=== PATIENT | male | born 1945 | race Caucasian/White ===

== ENCOUNTER 2018-06-03 00:56 | Inpatient (IN) | payer MEDICARE, OTHER ==
[2018-06-03] MEDS ORDERED: Lidocaine Viscous Sol 2% 15 ml UD Cup ONE (01:28)
[2018-06-03] MEDS ORDERED: Mag-Al 1200 mg/1200 mg/30 ML UDCUP ONE (01:28)
[2018-06-03 01:35] LABS: #Eosinphils 0.1 thou/uL (0.0-0.7); #Lymphocytes 0.8 thou/uL (1.20-3.40); #Neutrophils 10.4 thou/uL (1.40-6.50); %Basophils 0.2 % (0.0-1.0); %Lymphocytes 6.3 % (21.0-51.0); %Monocytes 8.2 % (0.0-10.0); %Neutrophils 84.4 % (42.0-75.0); Hemoglobin 15.8 g/dL (14.0-18.0); Mean Corpuscular HGB CONC 34.1 g/dL (32.0-36.0); Mean Corpuscular Hemoglobin 29.7 pg (27.0-31.0); Mean Corpuscular Volume 87.3 fL (78.0-98.0); Mean Platelet Volume 5.8 fL (7.4-10.4); Platelet Count 187 thou/uL (130-400); RBC Distribution Width 12.4 % (11.5-14.5); White Blood Cell (WBC) Count 12.3 thou/uL (4.8-10.8)
[2018-06-03] MEDS ORDERED: Ondansetron ODT 4 MG TAB ONE (01:47)
[2018-06-03] MEDS ORDERED: Morphine 4 MG/ML VIAL ONE (01:50)
[2018-06-03] MEDS ORDERED: Pantoprazole 40 MG VIAL ONE (01:50)
[2018-06-03] MEDS ORDERED: Ondansetron HCl/PF 4 MG/2 ML Vial ONE ×2 (01:50→10:02)
[2018-06-03 01:54] LABS: ALT (SGPT) 29 U/L (8-55); AST (SGOT) 30 U/L (5-34); Albumin 4.6 g/dL (3.4-4.8); Alkaline Phosphatase 106 U/L (40-150); Anion Gap 17 mmol/L (10-20); BUN (Urea Nitrogen) 24 mg/dL (8.4-25.7); Bilirubin, Total 1.5 mg/dL (0.2-1.2); CK (CPK) 113 U/L (30-200); Calc. Creatinine Clearance 0 mL/min (70-130); Calcium 9.8 mg/dL (7.8-10.44); Carbon Dioxide 24 mmol/L (23-31); Chloride 104 mmol/L (98-107); Estimated GFR-MDRD 49; Globulin 2.9 g/dL (2.4-3.5); Glucose 173 mg/dL (83-110); Lipase 13 U/L (8-78); Potassium 4.4 mmol/L (3.5-5.1); Protein, Total 7.5 g/dL (5.8-8.1); Sodium 141 mmol/L (136-145)
[2018-06-03 01:59] LABS: Troponin I 0.022 ng/mL (< 0.028)
[2018-06-03 03:36] LABS: Bilirubin Negative (Negative); Blood, Urine Negative (Negative); Clarity CLEAR (Clear); Glucose, Urine (Dipstick) Negative (Negative); Leukocyte Negative (Negative); Nitrite Negative (Negative); Protein, Urine (Dipstick) Negative (Neg-Trace); Specific Gravity, Urine 1.044 (1.002-1.036)
[2018-06-03] MEDS ORDERED: Fentanyl 100 MCG/2 ML VIAL ONE ×4 (03:50→11:04)
[2018-06-03] MEDS ORDERED: MEROPENEM 1 GM/50 ML 1 GM in Premix Bag 1 BAG IVPB SCH ×3 (05:00→17:00)
[2018-06-03] MEDS ORDERED: Ondansetron HCl/PF 4 MG/2 ML Vial IVP PRN ×3 (05:54→17:12)
[2018-06-03] MEDS ORDERED: Acetaminophen 325 MG TAB PO PRN ×3 (05:54→17:10)
[2018-06-03] MEDS ORDERED: Ondansetron ODT 4 MG TAB SL PRN (05:54)
[2018-06-03] MEDS ORDERED: Fentanyl 100 MCG/2 ML VIAL SLOW IVP PRN ×2 (05:54→17:06)
[2018-06-03 06:00] VITALS: BMI 32.1
[2018-06-03] MEDS: Sodium Chloride 0.9% 1,000 ML IV SCH ×2 (06:25→17:03)
[2018-06-03] MEDS ORDERED: Iothalamate Meglumine 60% 50 ML VIAL FS ONE ×2 (06:54→13:10)
[2018-06-03] MEDS ORDERED: Bupivacaine/Epinephrine 0.25% 30 ML VIAL ONE ×2 (06:54→13:10)
--- NOTE | 2018-06-03 07:50 | RAD ---
PORTABLE UPRIGHT FRONTAL CHEST RADIOGRAPH: DATE: 06/03/18. HISTORY: Epigastric pain. FINDINGS: Heart and mediastinal contours are grossly unremarkable with no pneumothorax, pleural fluid, focal co nsolidation, or alveolar edema. Mild increased linear interstitial density. There is mild atheroscl erotic calcification in the aortic arch. IMPRESSION: No focal consolidation or alveolar edema. POS: [facility]
--- NOTE | 2018-06-03 08:17 | ULT ---
PRELIMINARY REPORT/[facility]/EMERGENCY AFTER HOURS PROCEDURE: EXAM: US Abdomen Limited, Right Upper Quadrant EXAM DATE/TIME: 06/03/2018 3:38 AM CLINICAL HISTORY: 72 years old, male; Pain and signs and symptoms; Nausea and vomiting; Abdominal pain; Epigastric TECHNIQUE: Real-time ultrasound of the abdomen with image documentation. Examination is focused on the right upper quadrant. COMPARISON: CT Abdomen Pelvis W Con 06/03/2018 2:26 AM FINDINGS: Liver: Liver is normal in length with normal echogenicity. Portal venous: Normal appearing main portal vein flow. Gallbladder: Gallbladder contains sludge material and mild pericholecystic fluid. No definite stones. Common bile duct: Common bile duct is normal in width at 4 mm. Pancreas: Pancreas not visualized well. Right kidney: Right kidney partially obscured, 4.8 x 4.6 x 11.9 cm appears normal. Intraperitoneal space: No evidence of free fluid. Other findings: Limited study due to increased bowel gas. IMPRESSION: 1. Limited study due to increased bowel gas. 2. Gallbladder contains sludge material and mild pericholecystic fluid - findings suspicious for chol ecystitis. Thank you for allowing us to participate in the care of your patient. Dictated and Authenticated by: Shaila Kern MD 06/03/2018 4:08 AM Central Time ([place] & [place]) FINAL REPORT GALLBLADDER ULTRASOUND: Date: 06/03/18 FINDINGS/IMPRESSION: Report is in agreement with the preliminary interpretation provided above. Increased echogenicity of the gallbladder lumen, indicating gallbladder sludge/stones. There is a bor derline size gallbladder wall which approximately 3 mm in size. Subtle decreased echogenicity about t he gallbladder wall may relate to a small volume of pericholecystic fluid. Recommend clinical correla tion to exclude evidence of cholecystitis. POS: [facility]
--- NOTE | 2018-06-03 08:33 | CT ---
PRELIMINARY REPORT/[facility]/EMERGENCY AFTER HOURS PROCEDURE: EXAM: CT Abdomen and Pelvis With Intravenous Contrast EXAM DATE/TIME: 06/03/2018 2:26 AM CLINICAL HISTORY: 72 years old, male; Pain; Abdominal pain; Epigastric; Patient HX: Epigastric pain. TECHNIQUE: Axial computed tomography images of the abdomen and pelvis with intravenous contrast. Coronal reforma tted images were created and reviewed. COMPARISON: No relevant prior studies available. FINDINGS: Lower thorax: Rounded 3 cm hiatal hernia. Mild bilateral lower lobe dependent air space opacityatelec tasis. ABDOMEN: Liver: Normal. No mass. Gallbladder and bile ducts: Mild suspected inhomogeneity of the fat surrounding the gallbladder; smal l 3 mm stone within the gallbladder lumen. Pancreas: Normal. No ductal dilation. Spleen: Normal. No splenomegaly. Adrenals: Normal. No mass. Kidneys and ureters: Rounded 1-2 mm densities bilateral kidneys. Stomach and bowel: Moderate colonic diverticulosis particularly involving the descending-sigmoid colo n. No radiographic signs of inflammation. Appendix: Visualized portions of appendix appear normal. PELVIS: Bladder: Unremarkable as visualized. Reproductive: Prostate appears within normal limits. ABDOMEN and PELVIS: Intraperitoneal space: Normal. No free air. No significant fluid collection. Bones/joints: Chronic degenerative changes of the lumbar spine. Soft tissues: Unremarkable. Vasculature: Chronic atherosclerotic calcification of the vasculature. Lymph nodes: Normal. No enlarged lymph nodes. IMPRESSION: 1. Gallstone with possible inflammation-cholecystitis versus artifact. No evidence of intrahepatic or extrahepatic biliary ductal dilatation. Please correlate with patients clinical exam. 2. Rounded 3 cm hiatal hernia. 3. Moderate colonic diverticulosis particularly involving the descending-sigmoid colon. No radiograph ic signs of inflammation. 4. Suspected bilateral renal nonobstructive stones. 5. Mild bilateral lower lobe dependent air space opacity-atelectasis. Thank you for allowing us to participate in the care of your patient. Dictated and Authenticated by: Shaila Kern MD 06/03/2018 3:50 AM Central Time ([place] & [place]) FINAL REPORT ABDOMEN AND PELVIC CT WITH CONTRAST: FINDINGS/IMPRESSION: Final report is in agreement with the above-provided preliminary interpretation. Mild inflammation about the gallbladder with subtle increased density of the gallbladder lumen. Coco elate for clinical evidence of cholecystitis. Not mentioned in preliminary report, there is mild enlargement of the prostate gland with an approxim ate 5.5 cm transverse diameter. Recommend appropriate clinical followup in this regard. POS: [facility]
[2018-06-03] MEDS ORDERED: Lidocaine 1% PF 5 ML VIAL ONE (10:02)
[2018-06-03] MEDS ORDERED: Labetalol HCl 100 MG/20 ML VIAL ONE (10:02)
[2018-06-03] MEDS ORDERED: PROPOFOL 200 MG/20 ML VIAL ONE (10:02)
[2018-06-03] MEDS ORDERED: Ketorolac Tromethamine 30 MG/ML VIAL ONE (10:02)
[2018-06-03] MEDS ORDERED: Glycopyrrolate 0.2 MG/ML 5 ML SYRINGE ONE (10:02)
[2018-06-03] MEDS ORDERED: Famotidine/PF 20 mg/2ml Vial ONE (10:56)
[2018-06-03] MEDS ORDERED: Midazolam HCl 2 mg/2 ml Vial ONE (11:04)
[2018-06-03] MEDS ORDERED: ISOVUE-370 76%-LOCM 1 ML ONE (11:09)
[2018-06-03] MEDS ORDERED: Fentanyl 250 MCG/5 ML VIAL ONE (13:09)
[2018-06-03] MEDS ORDERED: Promethazine HCl 25 MG/ML VIAL SLOW IVP PRN (13:49)
[2018-06-03] MEDS ORDERED: Promethazine HCl 25 MG/ML VIAL IM PRN (13:49)
--- NOTE | 2018-06-03 15:24 | RAD ---
OPERATIVE CHOLANGIOGRAM: A single film is presented for interpretation. This shows filling of a nondilated common duct with e mptying into the duodenum. IMPRESSION: Unremarkable operative cholangiogram. POS: [facility]
[2018-06-03] MEDS ORDERED: Meropenem 1 GM in Sodium Chloride 0.9% 100 ML IVPB SCH (17:00)
[2018-06-03] MEDS ORDERED: HYDROcodone/Acetaminophen 7.5/325 mg Tablet PO PRN (17:08)
[2018-06-03] MEDS ORDERED: Ibuprofen 200 MG TAB PO PRN (17:09)
[2018-06-03] MEDS: Pantoprazole 40 MG VIAL IVP SCH (21:05)
[2018-06-03] MEDS: MEROPENEM 1 GM/50 ML 1 GM in Premix Bag 1 BAG IVPB SCH (21:06)
[2018-06-04] MEDS: HYDROcodone/Acetaminophen 7.5/325 mg Tablet PO PRN ×5 (02:02→20:41)
[2018-06-04] MEDS: MEROPENEM 1 GM/50 ML 1 GM in Premix Bag 1 BAG IVPB SCH ×3 (05:17→21:05)
[2018-06-04] MEDS ORDERED: Prevnar 13-Val Conj/PF 0.5 ML SYRINGE IM ONE (09:00)
[2018-06-04 10:24] LABS: ALT (SGPT) 97 U/L (8-55); AST (SGOT) 82 U/L (5-34); Albumin 3.8 g/dL (3.4-4.8); Alkaline Phosphatase 114 U/L (40-150); Anion Gap 13 mmol/L (10-20); BUN (Urea Nitrogen) 21 mg/dL (8.4-25.7); Bilirubin, Total 1.7 mg/dL (0.2-1.2); Calc. Creatinine Clearance 77 mL/min (70-130); Calcium 8.7 mg/dL (7.8-10.44); Carbon Dioxide 26 mmol/L (23-31); Chloride 102 mmol/L (98-107); Estimated GFR-MDRD 54; Globulin 2.8 g/dL (2.4-3.5); Glucose 131 mg/dL (83-110); Potassium 4.3 mmol/L (3.5-5.1); Protein, Total 6.6 g/dL (5.8-8.1); Sodium 137 mmol/L (136-145)
[2018-06-04 11:07] LABS: Band 3 % (5-11); Eosinophils 2 % (0-10); Hemoglobin 14.9 g/dL (14.0-18.0); Lymphocytes 7 % (21-51); MDiff Complete? YES; Mean Corpuscular HGB CONC 33.5 g/dL (32.0-36.0); Mean Corpuscular Hemoglobin 29.6 pg (27.0-31.0); Mean Corpuscular Volume 88.2 fL (78.0-98.0); Mean Platelet Volume 5.6 fL (7.4-10.4); Monocytes 5 % (0-10); Neutrophil 83 % (42-75); PLT Morphology Comment Appears Adequate; Platelet Count 188 thou/uL (130-400); RBC Distribution Width 12.6 % (11.5-14.5); Red Blood Cell (RBC) Count 5.03 mill/uL (4.70-6.10); White Blood Cell (WBC) Count 16.9 thou/uL (4.8-10.8)
[2018-06-04] MEDS ORDERED: Sodium Chloride 0.9% 500 ML IVPB SCH (19:45)
[2018-06-04] MEDS: Pantoprazole 40 MG VIAL IVP SCH (20:41)
[2018-06-04] MEDS: Ibuprofen 600 MG TAB PO PRN (20:41)
[2018-06-05] MEDS: Sodium Chloride 0.9% 1,000 ML IV SCH ×2 (00:45→14:00)
[2018-06-05] MEDS: MEROPENEM 1 GM/50 ML 1 GM in Premix Bag 1 BAG IVPB SCH ×2 (06:20→14:02)
[2018-06-05] MEDS: HYDROcodone/Acetaminophen 7.5/325 mg Tablet PO PRN (06:21)
[2018-06-05] MEDS: Ibuprofen 600 MG TAB PO PRN (06:21)
[2018-06-05 10:28] LABS: #Basophils 0.1 thou/uL (0.0-0.2); #Eosinphils 0.9 thou/uL (0.0-0.7); #Lymphocytes 1.4 thou/uL (1.20-3.40); #Monocytes 1.9 thou/uL (0.11-0.59); #Neutrophils 12.7 thou/uL (1.40-6.50); %Basophils 0.4 % (0.0-1.0); %Eosinophils 5.3 % (0.0-10.0); %Lymphocytes 8.3 % (21.0-51.0); %Monocytes 11.2 % (0.0-10.0); %Neutrophils 74.9 % (42.0-75.0); Hemoglobin 14.1 g/dL (14.0-18.0); Mean Corpuscular HGB CONC 32.9 g/dL (32.0-36.0); Mean Corpuscular Hemoglobin 29.2 pg (27.0-31.0); Mean Corpuscular Volume 88.8 fL (78.0-98.0); Mean Platelet Volume 5.8 fL (7.4-10.4); Platelet Count 195 thou/uL (130-400); RBC Distribution Width 12.4 % (11.5-14.5); Red Blood Cell (RBC) Count 4.81 mill/uL (4.70-6.10)
[2018-06-05 10:48] LABS: ALT (SGPT) 96 U/L (8-55); AST (SGOT) 70 U/L (5-34); Albumin 3.7 g/dL (3.4-4.8); Alkaline Phosphatase 176 U/L (40-150); Anion Gap 13 mmol/L (10-20); BUN (Urea Nitrogen) 22 mg/dL (8.4-25.7); Bilirubin, Total 1.7 mg/dL (0.2-1.2); Calc. Creatinine Clearance 79 mL/min (70-130); Calcium 9.1 mg/dL (7.8-10.44); Carbon Dioxide 28 mmol/L (23-31); Chloride 102 mmol/L (98-107); Estimated GFR-MDRD 56; Globulin 2.8 g/dL (2.4-3.5); Glucose 119 mg/dL (83-110); Protein, Total 6.5 g/dL (5.8-8.1); Sodium 139 mmol/L (136-145)
[2018-06-05 11:51] VITALS: BP 127/81; TEMP 97.8
--- NOTE | 2018-06-05 18:24 | EKG ---
Test Reason : EPIGASTRIC PAIN Blood Pressure : / mmHG Vent. Rate : 068 BPM Atrial Rate : 068 BPM P-R Int : 178 ms QRS Dur : 090 ms QT Int : 378 ms P-R-T Axes : 063 -07 -11 degrees QTc Int : 401 ms Normal sinus rhythm with sinus arrhythmia Inferior infarct , age undetermined Cannot rule out Anterior infarct , age undetermined Abnormal ECG Confirmed by LONG LOPEZ, QUAN Callaway ([id number]), features editor ELISA HAYES ([id number]) on 06/05/2018 6:24:24 PM Referred By: Confirmed By:QUAN ALVES MD
--- NOTE | 2018-06-07 20:48 | EKG ---
Test Reason : STAT Blood Pressure : / mmHG Vent. Rate : 102 BPM Atrial Rate : 102 BPM P-R Int : 168 ms QRS Dur : 088 ms QT Int : 332 ms P-R-T Axes : 063 011 038 degrees QTc Int : 432 ms Sinus tachycardia with Premature atrial complexes Inferior infarct , age undetermined Abnormal ECG No previous ECGs available Confirmed by RENAN JO (2) on 06/07/2018 8:48:02 PM Referred By: KATIE Confirmed By:RENAN JO
--- NOTE | 2018-06-09 19:32 | PDOC.OP ---
Operative Note - Operative Note Operative Note: PROCEDURE: Laparoscopic cholecystectomy with intraoperative cholangiogram SURGEON: Qasim Olivares M.D. DATE OF PROCEDURE: 06/03/2018 PREOPERATIVE DIAGNOSIS: Cholelithiasis and cholecystitis, possible choledocholithiasis, small umbilical hernia POSTOPERATIVE DIAGNOSIS: Cholelithiasis and cholecystitis, small umbilical hernia HISTORY: Patient with intermittent episodes of epigastric pain for 2 weeks with unrelenting pain since the day prior to admission. He was found to have an abnormal appearing gallbladder on ultrasound and recommendation was made to proceed with laparoscopic cholecystectomy with intraoperative cholangiogram. FINDINGS: Severe gangrenous cholecystitis with omental adhesions and normal IOC. Small umbilical hernia repair primarily with 0 Vicryl suture. PROCEDURE IN DETAIL: After informed consent was obtained and appropriate preoperative antibiotics were administered, the patient was taken to the operating room and placed in the supine position and general endotracheal anesthesia was administered. The stomach was decompressed with an OG tube and the abdomen was prepped and draped in standard sterile fashion. Local anesthesia was infused to the skin and subcutaneous tissues at the umbilical level. A transverse skin incision was made. The fascia was elevated and a Veress needle was placed into the abdominal cavity without difficulty. Opening pressure was less than 5 and carbon dioxide gas easily insufflated to an intra- abdominal pressure of 15, which the patient tolerated well. The Veress needle was withdrawn and a [place] port advanced under direct vision through the umbilical hernia defect. The abdominal cavity was carefully examined. There was no evidence of Veress needle or of trocar injury. Local anesthesia was infused to the skin and subcutaneous tissues at the epigastric, right upper quadrant, and right lateral abdominal sites and trocars were placed under direct vision of the laparoscope. The fundus of the gallbladder was too tense to be grasped so was aspirated with removal of normal-appearing bile. Following this the fundus was able to be grasped and retracted superiorly. Omental adhesions were stripped inferiorly through the avascular plane using electrocautery as necessary. The infundibulum was grasped and retracted laterally. The serosa was stripped inferiorly at the level of the neck of the gallbladder exposing the cystic duct and artery which were traced clearly to their insertion in the gallbladder. These were dissected free circumferentially and the cystic duct was clipped at the level of the neck of the gallbladder. The cystic artery was clipped but not divided. An incision was made in the cystic duct inferior to the clip and the cystic duct was palpated with no stones palpable. Clear bile was seen to flow from the cystic duct incision. A cholangiogram catheter was introduced and placed into the cystic duct and secured with a clip. A cholangiogram was obtained which showed an adequate length of cystic duct. There was normal filling of the common bile duct with free flow of contrast into the duodenum. There was normal retrograde flow into the common hepatic duct beyond the level of the bifurcation without filling defects. The cholangiogram catheter was removed and the cystic duct clipped below the incision in the cystic duct. The cystic duct was divided between these clips and the previously placed clip. The cystic artery was clipped and divided between the previously placed clips. The gallbladder was then dissected free of the gallbladder bed using hook electrocautery. Prior to complete removal of the gallbladder from the gallbladder bed, the area of the cystic duct and artery stumps was examined. The clips were in good position completely across these structures and there was no bleeding and no leakage of bile. The gallbladder was then placed into an EndoCatch bag and drawn out through the epigastric incision. The epigastric trocar was replaced and the operative site easily irrigated to clear. There was no significant bleeding or spillage of bile. The camera was moved to the right upper quadrant location and the umbilical trocar removed. The fascial defect was closed with a 0 Vicryl suture on a GraNee needle with excellent result. The epigastric trocar was removed and the fascia closed under direct laparoscopic vision with a 0 Vicryl suture on a GraNee needle in a [id number] manner with excellent technical result. The suture was secured but not tied down and the epigastric trocar was replaced. The right upper quadrant and right lateral abdominal trocars were removed and hemostasis verified. Carbon dioxide gas was allowed to desufflate through the epigastric trocar which was then removed. The skin incisions were closed with 4-0 subcuticular Monocryl sutures and Dermabond dressings were placed. The patient was extubated and taken to the recovery room in good condition. There were no complications. ESTIMATED BLOOD LOSS: 100 mL. SPECIMEN : Gallbladder and contents.
== END 2018-06-05 14:28 | disposition home or self-care (01) | DRG 418 ==
LOC: ERS 00:56 → SURG B 05:44
PROVIDERS: ADMIT Surgery; ATTEND Surgery
PROC: 0FT44ZZ Resection of Gallbladder, Percutaneous Endoscopic Approach (ICD-10-PCS; principal; 2018-06-03)
PROC: 0DNU4ZZ Release Omentum, Percutaneous Endoscopic Approach (ICD-10-PCS; 2018-06-03)
PROC: 0WQF4ZZ Repair Abdominal Wall, Percutaneous Endoscopic Approach (ICD-10-PCS; 2018-06-03)
PROC: BF101ZZ Fluoroscopy of Bile Ducts using Low Osmolar Contrast (ICD-10-PCS; 2018-06-03)
DX: K80.00 Calculus of gallbladder with acute cholecystitis without obstruction (principal); I96 Gangrene, not elsewhere classified; K21.9 Gastro-esophageal reflux disease without esophagitis; E78.5 Hyperlipidemia, unspecified; K66.0 Peritoneal adhesions (postprocedural) (postinfection); K42.9 Umbilical hernia without obstruction or gangrene
CPT/HCPCS: 36415; 47532; 71045; 74177; 76705; 80053; 81003; 82248; 82553; 83690; 84484; 85025; 88304; 90471; 90670; 93005; 93010; A4216; C9113; G0009; J1610; J1885; J2001; J2185; J2250; J2270; J2405; J2704; J3010; J7050; Q0162; Q9961; S0028